=== PATIENT | female | born 1945 ===

== ENCOUNTER 2017-01-18 16:28 | Observation (INO) | payer MEDICARE, MEDICAID ==
[2017-01-18 16:59] LABS: BASO # 0.1 K/uL (0.0-0.2); BASO % 1.2 % (0.0-2.0); EOS # 0.1 K/uL (0.0-0.7); EOS % 2.8 % (0.0-4.0); LYMPH # 1.9 K/uL (1.0-4.3); LYMPH % 40.4 % (20.0-40.0); MEAN CELL VOLUME 91.2 fl (81.0-99.0); MEAN CORPUSCULAR HEMOGLOBIN 30.7 pg (27.0-31.0); MEAN CORPUSCULAR HGB CONC 33.7 g/dL (33.0-37.0); MEAN PLATELET VOLUME 9.2 fl (7.2-11.7); MONO # 0.5 K/uL (0.0-0.8); MONO % 10.2 % (0.0-10.0); NEUT # 2.1 K/uL (1.8-7.0); NEUT % 45.4 % (50.0-75.0); NRBC % 0.1 % (0.0-0.0); RED CELL DISTRIBUTION WIDTH 12.9 % (11.5-14.5); WHITE BLOOD COUNT 4.7 K/uL (4.8-10.8)
--- NOTE | 2017-01-18 17:01 | CT ---
PROCEDURE: CT HEAD WITHOUT CONTRAST. HISTORY: code stroke COMPARISON: None available. TECHNIQUE: Axial computed tomography images were obtained through the head/brain without intravenous contrast. Radiation dose: Total exam DLP = 868.70 mGy-cm. This CT exam was performed using one or more of the following dose reduction techniques: Automated exposure control, adjustment of the mA and/or kV according to patient size, and/or use of iterative reconstruction technique. FINDINGS: HEMORRHAGE: No intracranial hemorrhage. BRAIN: No mass effect or edema. No atrophy or chronic microvascular ischemic changes. VENTRICLES: Unremarkable. No hydrocephalus. CALVARIUM: Unremarkable. PARANASAL SINUSES: Unremarkable as visualized. No significant inflammatory changes. MASTOID AIR CELLS: Unremarkable as visualized. No inflammatory changes. OTHER FINDINGS: None. IMPRESSION: Normal CT of the Head. No evidence of acute infarct. No intracranial mass or hemorrhage. Findings in this examination were discussed by telephone with Dr. mcgregor at 4:57 p.m. on 01/18/2017
[2017-01-18 17:08] LABS: ALB/GLOB RATIO 1.2 (1.0-2.1); ALKALINE PHOSPHATASE 184 U/L (38-126); ALT/SGPT 49 U/L (9-52); AST/SGOT 30 U/L (14-36); BILIRUBIN,TOTAL 0.5 mg/dl (0.2-1.3); BLOOD UREA NITROGEN 17 mg/dl (7-17); CALCIUM 9.6 mg/dL (8.4-10.2); CARBON DIOXIDE 28 mmol/L (22-30); CHLORIDE 104 mmol/L (98-107); CHOLESTEROL 152 mg/dL (0-199); GFR AFRICAN-AMERICAN > 60; GLUCOSE,RANDOM 106 mg/dL (65-105); SODIUM 141 mmol/l (132-148); TOTAL PROTEIN 7.5 G/DL (6.3-8.2)
--- NOTE | 2017-01-18 17:14 | ED PDOC ---
HPI: General Adult Time Seen by Provider: 01/18/17 16:43 Chief Complaint (Nursing): Weakness/Neurological Deficit Past Medical History Vital Signs: Last Vital Signs Temp 98.0 F 01/18/17 16:35 Pulse 60 01/18/17 16:35 Resp 20 01/18/17 16:35 BP 135/65 01/18/17 16:35 Pulse Ox 99 01/18/17 16:35 - Medical History PMH: HTN - Surgical History Surgical History: Appendectomy, Cholecystectomy - Home Medications Home Medications: Ambulatory Orders Medication Instructions Recorded Carvedilol [Coreg] 25 mg PO BID 01/18/17 Diclofenac Sodium [Voltaren] 100 gm TP QID PRN 01/18/17 Olopatadine HCl [Pazeo] 1 drop BOTHEYES DAILY 01/18/17 Oxybutynin [Oxybutynin Chloride] 5 mg PO DAILY 01/18/17 SITagliptin [Januvia] 100 mg PO DAILY 01/18/17 - Allergies Allergies/Adverse Reactions: Allergies Allergy/AdvReac Type Severity Reaction Status Date / Time No Known Allergies Allergy Verified 01/18/17 16:35 - Laboratory Results Result Diagrams: 01/18/17 16:54 - ECG O2 Sat by Pulse Oximetry: 99 Medical Decision Making Medical Decision Making: Time: 16:[address] (Code Stroke): FINDINGS: HEMORRHAGE: No intracranial hemorrhage. BRAIN: No mass effect or edema. No atrophy or chronic microvascular ischemic changes. VENTRICLES: Unremarkable. No hydrocephalus. CALVARIUM: Unremarkable. PARANASAL SINUSES: Unremarkable as visualized. No significant inflammatory changes. MASTOID AIR CELLS: Unremarkable as visualized. No inflammatory changes. OTHER FINDINGS: None. IMPRESSION: Normal CT of the Head. No evidence of acute infarct. No intracranial mass or hemorrhage. Findings in this examination were discussed by telephone with Dr. mcgregor at 4: 57 p.m. on 01/18/2017. Scribe Attestation: Documented by Sydney Banks, acting as a scribe for Dylon Mas MD Provider Scribe Attestation: All medical record entries made by the Scribe were at my direction and personally dictated by me. I have reviewed the chart and agree that the record accurately reflects my personal performance of the history, physical exam, medical decision making, and the department course for this patient. I have also personally directed, reviewed, and agree with the discharge instructions and disposition. Disposition - Disposition Forms: We[facility] (Tajik)
[2017-01-18 17:24] LABS: POTASSIUM 4.5 MMOL/L (3.6-5.0)
--- NOTE | 2017-01-18 17:34 | RAD ---
HISTORY: stroke COMPARISON: 08/11/2010 FINDINGS: LUNGS: No active pulmonary disease. PLEURA: No significant pleural effusion identified, no pneumothorax apparent. CARDIOVASCULAR: Normal. OSSEOUS STRUCTURES: No significant abnormalities. VISUALIZED UPPER ABDOMEN: Normal. OTHER FINDINGS: None. IMPRESSION: No active disease.
--- NOTE | 2017-01-18 17:36 | ED PDOC ---
HPI:STROKE - Time Time: 16:30 - Historian Historian: Patient - Chief Complaint Chief Complaint: Numbness (right-sided) - Onset Time: 15:00 Onset: Hours (2 hours prior to arrival) - Timing Timing: Currently Symptomatic - TPA Positive for Contraindication: Yes Reason tPA is not being Administered: no deficits and NIH SS is 0 - Notes: Notes:: Christie Ellison is a 71 y/o female with a past medical history of hypertension and stroke, who presents to the ED complaining of right-sided lower facial numbness , right arm and leg numbness, onset 2 hours prior to arrival. Also complains of left eye redness. Patient is on Plavix s/p stroke 5 years ago. Denies having any other medical complaints. No slurred speech, difficulty walking, blurred vision, weakness, or chest pain. PMD: Ania Lombardo NIHSS Stroke Scale - Date/Time Evaluation Performed Date Performed: 01/18/17 Time Performed: 16:45 When Was NIHSS Performed: Baseline - How Severe is the Stroke Level of Consciousness: 0=Alert LOC to Questions: 0=Both comments correct LOC to commands: 0=Obeys both correctly Best Gaze: 0=Normal Visual: 0=No visual loss Facial: 0=Normal Motor Arm - Left: 0=No drift Motor Arm - Right: 0=No drift Motor Leg - Left: 0=No drift Motor Leg - Right: 0=No drift Limb Ataxia: 0=Absent Sensory: 0=Normal Best Language: 0=No aphasia Dysarthia: 0=Normal articulation Extinction & Inattention (Neglect): 0=Normal, no object Score: 0 rTPA Inclusion/Exclusion - Refusal of Treatment Patient Refused Treatment: No - Inclusion Criteria for Altepase Patient is 18 years or Older: Yes The Clinical Diagnosis of Ischemic Stroke That is Causing a Potentially Disabling Neurological Deficit: No Time of Onset is Well Established to be Less Than 270 Minute Before Treatment Would Begin: Yes Risk/Benefit Discussed With Patient/Family Member Present: No Past Medical History Reviewed: Historical Data, Nursing Documentation, Vital Signs Vital Signs: Last Vital Signs Temp 98.0 F 01/18/17 16:35 Pulse 60 01/18/17 16:35 Resp 20 01/18/17 16:35 BP 135/65 01/18/17 16:35 Pulse Ox 99 01/18/17 16:35 - Medical History PMH: CVA, Diabetes, HTN, Hypercholesterolemia - Surgical History Surgical History: Appendectomy, Cholecystectomy - Family History Family History: States: Unknown Family Hx - Social History Current smoker - smoking cessation education provided: No Alcohol: None Drugs: Denies - Home Medications Home Medications: Ambulatory Orders Medication Instructions Recorded Carvedilol [Coreg] 25 mg PO BID 01/18/17 Clopidogrel [Plavix] 75 mg PO DAILY 01/18/17 Diclofenac Sodium [Voltaren] 100 gm TP QID PRN 01/18/17 Memantine HCl/Donepezil HCl 1 each PO DAILY 01/18/17 [Namzaric 28 mg-10 mg Capsule] Olopatadine HCl [Pazeo] 1 drop BOTHEYES DAILY 01/18/17 Oxybutynin [Ditropan Tab] 5 mg PO DAILY 01/18/17 Rosuvastatin Calcium [Crestor] 5 mg PO DAILY 01/18/17 SITagliptin [Januvia] 100 mg PO DAILY 01/18/17 Aspirin [Aspirin Chewable] 81 mg PO DAILY 01/19/17 - Allergies Allergies/Adverse Reactions: Allergies Allergy/AdvReac Type Severity Reaction Status Date / Time No Known Allergies Allergy Verified 01/18/17 16:35 Review of Systems ROS Statement: Except As Marked, All Systems Reviewed And Found Negative Eyes: Positive for: Redness (Left eye). Negative for: Vision Change Cardiovascular: Negative for: Chest Pain Neurological: Positive for: Numbness (of right arm and leg, right lower facial area). Negative for: Weakness, Other (slurred speech, difficulty walking) Physical Exam - Reviewed Nursing Documentation Reviewed: Yes Vital Signs Reviewed: Yes - Physical Exam Appears: Positive for: Non-toxic, No Acute Distress Head Exam: Positive for: ATRAUMATIC, NORMAL INSPECTION, NORMOCEPHALIC Skin: Positive for: Normal Color, Warm, Dry Eye Exam: Positive for: EOMI, PERRL, Other (Subconjunctival hemorrhage to left eye) ENT: Positive for: Normal ENT Inspection Neck: Positive for: Normal, Painless ROM, Supple Cardiovascular/Chest: Positive for: Regular Rate, Rhythm. Negative for: Murmur Respiratory: Positive for: Normal Breath Sounds. Negative for: Accessory Muscle Use, Respiratory Distress Gastrointestinal/Abdominal: Positive for: Normal Exam, Soft. Negative for: Tenderness Back: Positive for: Normal Inspection. Negative for: Vertebral Tenderness Extremity: Positive for: Normal ROM. Negative for: Pedal Edema, Deformity Neurologic/Psych: Positive for: Alert, Oriented, Gait (normal), Other (Speech is normal). Negative for: Motor/Sensory Deficits - Laboratory Results Result Diagrams: 01/19/17 06:10 01/19/17 06:10 - ECG ECG: Positive for: Interpreted By Me, Viewed By Me ECG Rhythm: Positive for: Normal QRS, Sinus Bradycardia. Negative for: ST/T Changes Rate: 51 O2 Sat by Pulse Oximetry: 99 Pulse Ox Interpretation: Normal - Other Rad Chest X-Ray X-Ray: Read By Radiologist (at 17:32) X-Ray Interpretation: IMPRESSION: No active disease. - Core Measure Core Measure Indicators: Code Stroke - Critical Care Total Time (In Min): 45 Medical Decision Making Medical Decision Making: Time: 16:44 Initial Impression: TIA vs. Stroke Initial Plan: --Code stroke was called --Labs --EKG --CXR --Pending CT Head (Code Stroke) Time: 16:[address] (Code Stroke): FINDINGS: HEMORRHAGE: No intracranial hemorrhage. BRAIN: No mass effect or edema. No atrophy or chronic microvascular ischemic changes. VENTRICLES: Unremarkable. No hydrocephalus. CALVARIUM: Unremarkable. PARANASAL SINUSES: Unremarkable as visualized. No significant inflammatory changes. MASTOID AIR CELLS: Unremarkable as visualized. No inflammatory changes. OTHER FINDINGS: None. IMPRESSION: Normal CT of the Head. No evidence of acute infarct. No intracranial mass or hemorrhage. Findings in this examination were discussed by telephone with Dr. mcgregor at 4: 57 p.m. on 01/18/2017. Time: 17:03 --Spoke to Dr. Mccartney, director of instructional technology Neurologist for Dr. Cherry, and discussed case --He advised patient is not candidate for tPA --Agreed on plan to admit patient for stroke work-up and give Aspirin Time: 17:15 --Ordered Aspirin 325 mg PO --Pending MRI: MRA Neck without contrast, Brain without contrast, MRA Head without contrast --Patient admitted Clinical Impression: TIA, Stroke Scribe Attestation: Documented by Sydney Banks, acting as a scribe for Dylon Mas MD Provider Scribe Attestation: All medical record entries made by the Scribe were at my direction and personally dictated by me. I have reviewed the chart and agree that the record accurately reflects my personal performance of the history, physical exam, medical decision making, and the department course for this patient. I have also personally directed, reviewed, and agree with the discharge instructions and disposition. Disposition - Clinical Impression Clinical Impression: Numbness on right side - Patient ED Disposition Is Patient to be Admitted: Yes Discussed With : Dillon Guerrero Doctor Will See Patient In The: Hospital Counseled Patient/Family Regarding: Studies Performed, Diagnosis - Disposition Disposition Time: 17:00 Condition: FAIR - Pt Status Changed To: Hospital Disposition Of: Observation - POA Present On Arrival: None Core Measure Indicators: Code Stroke
[2017-01-18] MEDS ORDERED: DICLOFENAC SODIUM 100 GM TP PRN (20:30)
--- NOTE | 2017-01-18 23:03 | US ---
EXAM: US Duplex Bilateral Extracranial Arteries CLINICAL HISTORY: 71 years old, female; Signs and symptoms; Other: Stroke TECHNIQUE: Real-time ultrasound scan of the bilateral carotid and vertebral arteries, 2-D zhao scale, with color Doppler flow and spectral waveform analysis. COMPARISON: CT - HEAD W/O (CODE STROKE) 01/18/2017 4:41:11 PM FINDINGS: Right common carotid artery: No occlusion or significant stenosis. Right internal carotid artery: No occlusion or significant stenosis. Right external carotid artery: No occlusion or significant stenosis. Right vertebral artery: Antegrade flow. Right ICA/CCA ratio: Measures 1.5 Intimal thickening is detected bilaterally. Calcified plaque is detected bilaterally, right greater than left. Left common carotid artery: No occlusion or significant stenosis. Left internal carotid artery: No occlusion or significant stenosis. Left external carotid artery: No occlusion or significant stenosis. Left vertebral artery: Antegrade flow. Left ICA/CCA ratio: Measures 2.2 Lymph nodes: Unremarkable. No lymphadenopathy. CAROTID STENOSIS REFERENCE USING SRU CRITERIA: Mild - <50% stenosis. ICA PSV is less than 125 cm/second and plaque or intimal thickening is visible. Moderate - 50-69% stenosis. ICA PSV is 125 to 230 cm/second and plaque is visible. Severe - 70-94% stenosis. ICA PSV is more than 230 cm/second and visible plaque with lumen narrowing is seen. Near occlusion - 95-99% stenosis. ICA PSV is variable and significant plaque with luminal narrowing is seen. Occluded - 100% stenosis. No flow identified. IMPRESSION: 50-69% stenosis within the left internal carotid artery, based on ICA/CCA ratios, as detailed above. Less than a 50% stenosis within the right internal carotid artery.
[2017-01-19 06:48] LABS: HEMATOCRIT 41.4 % (34.0-47.0); MEAN CELL VOLUME 91.6 fl (81.0-99.0); MEAN CORPUSCULAR HEMOGLOBIN 30.9 pg (27.0-31.0); MEAN CORPUSCULAR HGB CONC 33.7 g/dL (33.0-37.0); WHITE BLOOD COUNT 4.1 K/uL (4.8-10.8)
[2017-01-19 07:00] LABS: ALB/GLOB RATIO 1.2 (1.0-2.1); ALKALINE PHOSPHATASE 137 U/L (38-126); ALT/SGPT 44 U/L (9-52); AST/SGOT 25 U/L (14-36); BILIRUBIN,TOTAL 0.4 mg/dl (0.2-1.3); BLOOD UREA NITROGEN 15 mg/dl (7-17); CARBON DIOXIDE 29 mmol/L (22-30); CHLORIDE 102 mmol/L (98-107); GFR AFRICAN-AMERICAN > 60; GLUCOSE,RANDOM 115 mg/dL (65-105); POTASSIUM 3.6 MMOL/L (3.6-5.0); SODIUM 141 mmol/l (132-148); TOTAL PROTEIN 6.7 G/DL (6.3-8.2)
[2017-01-19 07:11] LABS: T4 9.74 ug/dl (5.5-11.0)
[2017-01-19 08:25] VITALS: TEMP 98.3
--- NOTE | 2017-01-19 08:38 | CP.PCM.HP ---
<Deborah Francis - Last Filed: 01/19/17 11:39> History of Present Illness - History of Present Illness History of Present Illness: 71 y/o female with a past medical history of hypertension and stroke ( 5 years ago), who presented yesterday to the ED complaining of right-sided lower facial numbness, right arm and leg numbness, onset 2 hours prior to arrival. Also patient was complaining of left eye redness at the time of ED presentation. Patient is on Plavix s/p stroke 5 years ago. Patient states that she has intermittent episodes of numbness in her right body that started after her stroke 5 years ago, but yesterday she came in to ED because a worse episode associated to headaches, and mild dizziness. Patient seen and examined with attending this morning. Patient denies Cp,palpitation, SOB, N/V, difficulty walking, blurred vision, weakness Afebrile, and had an uneventful night Present on Admission - Present on Admission Any Indicators Present on Admission: No History of DVT/PE: No History of Uncontrolled Diabetes: No Urinary Catheter: No Decubitus Ulcer Present: No Review of Systems - Review of Systems All systems: reviewed and no additional remarkable complaints except (as per HPI ) Past Patient History - Past Medical History & Family History Past Medical History?: Yes - Past Social History Smoking Status: Never Smoked - CARDIAC Hx Cardiac Disorders: Yes Hx Hypercholesterolemia: Yes Hx Hypertension: Yes - PULMONARY Hx Respiratory Disorders: No - NEUROLOGICAL Hx Neurological Disorder: Yes HX Cerebrovascular Accident: Yes Hx Transient Ischemic Attacks (TIA): Yes - HEENT Hx HEENT Problems: No - RENAL Hx Chronic Kidney Disease: No - ENDOCRINE/METABOLIC Hx Endocrine Disorders: Yes Hx Diabetes Mellitus Type 2: Yes - HEMATOLOGICAL/ONCOLOGICAL Hx Blood Disorders: No - INTEGUMENTARY Hx Dermatological Problems: No - MUSCULOSKELETAL/RHEUMATOLOGICAL Hx Musculoskeletal Disorders: No Hx Falls: No - GASTROINTESTINAL Hx Gastrointestinal Disorders: No - GENITOURINARY/GYNECOLOGICAL Hx Genitourinary Disorders: No - PSYCHIATRIC Hx Psychophysiologic Disorder: No Hx Substance Use: No - SURGICAL HISTORY Hx Surgeries: Yes Hx Appendectomy: Yes Hx Cholecystectomy: Yes - ANESTHESIA Hx Anesthesia: Yes Hx Anesthesia Reactions: No Hx Malignant Hyperthermia: No Meds Allergies/Adverse Reactions: Allergies Allergy/AdvReac Type Severity Reaction Status Date / Time No Known Allergies Allergy Verified 01/18/17 16:35 Physical Exam - Constitutional Appears: No Acute Distress - ENT Exam ENT Exam: Mucous Membranes Moist - Respiratory Exam Respiratory Exam: Clear to Auscultation Bilateral, NORMAL BREATHING PATTERN - Cardiovascular Exam Cardiovascular Exam: REGULAR RHYTHM, +S1, +S2 - GI/Abdominal Exam GI & Abdominal Exam: Normal Bowel Sounds, Soft. absent: Distended, Firm, Guarding, Tenderness - Extremities Exam Extremities exam: Positive for: normal inspection. Negative for: calf tenderness, pedal edema - Neurological Exam Neurological exam: Alert, CN II-XII Intact, Oriented x3 Additional comments: preserved strength in upper/lower extremities - Skin Skin Exam: Dry, Intact, Normal Color Results - Vital Signs Recent Vital Signs: Last Vital Signs Temp 98.3 F 01/19/17 08:00 Pulse 62 01/19/17 08:00 Resp 20 01/19/17 08:00 BP 139/73 01/19/17 08:00 Pulse Ox 96 01/19/17 08:00 - Labs Result Diagrams: 01/19/17 06:10 01/19/17 06:10 Labs: Laboratory Results - last 24 hr 01/18/17 01/19/17 01/19/17 20:54 01:11 05:24 WBC RBC Hgb Hct MCV MCH MCHC RDW Plt Count Sodium Potassium Chloride Carbon Dioxide Anion Gap BUN Creatinine Est GFR ( Amer) Est GFR (Non-Af Amer) POC Glucose (mg/dL) 115 H 120 H Random Glucose Calcium Total Bilirubin AST ALT Alkaline Phosphatase Troponin I < 0.0120 Total Protein Albumin Globulin Albumin/Globulin Ratio Thyroxine (T4) 01/19/17 01/19/17 06:10 06:10 WBC 4.1 L RBC 4.52 Hgb 14.0 Hct 41.4 MCV 91.6 MCH 30.9 MCHC 33.7 RDW 13.0 Plt Count 173 Sodium 141 Potassium 3.6 Chloride 102 Carbon Dioxide 29 Anion Gap 14 BUN 15 Creatinine 0.7 Est GFR ( Amer) > 60 Est GFR (Non-Af Amer) > 60 POC Glucose (mg/dL) Random Glucose 115 H Calcium 9.0 Total Bilirubin 0.4 AST 25 ALT 44 Alkaline Phosphatase 137 H D Troponin I Total Protein 6.7 Albumin 3.6 Globulin 3.0 Albumin/Globulin Ratio 1.2 Thyroxine (T4) 9.74 Assessment & Plan - Assessment and Plan (Free Text) Plan: Transient Numbness could be 2/2 TIA asymptomatic now f/u Head/Neck MRA f/u Brain MRI f/u Vitamin B 12 start Aspirin 81 mg c/w plavix and statin Neurology on Board, Dr. Velasquez, f/u recommendations Head CT showed no evidence of acute infarct, intracraneal mass or hemorrhage Diabetes Mellitus type 2 f/u HgbA1C c/w Januvia 100 mg c/w accucheck HTN c/w home coreg f/u BP DVT prophylaxis lovenox 40 mg SC - Date & Time Date: 01/19/17 Time: 07:40 <Dillon Guerrero - Last Filed: 01/25/17 17:22> History of Present Illness - History of Present Illness History of Present Illness: Patient was personally seen and examined by me in rounds with residents. Available labs and diagnostic data reviewed. Case, Patient's condition and management plan Discussed with residents in rounds. Agree with resident's progress note. Plan: As ordered. Results - Vital Signs Recent Vital Signs: Last Vital Signs Temp 98.3 F 01/19/17 12:00 Pulse 51 L 01/20/17 10:35 Resp 18 01/19/17 12:00 BP 114/61 01/19/17 12:00 Pulse Ox 99 01/20/17 10:35 - Labs Result Diagrams: 01/19/17 06:10 01/19/17 06:10
[2017-01-19] MEDS ORDERED: DONEPEZIL HCL PO SCH ×2 (09:00)
[2017-01-19] MEDS ORDERED: Olopatadine 0.1% Opht SOLN OU SCH (09:00)
[2017-01-19] MEDS ORDERED: MEMANTINE HCL PO SCH ×2 (09:00)
[2017-01-19] MEDS ORDERED: Enoxaparin 40 mg Syringe SC SCH (09:00)
[2017-01-19 10:38] LABS: THYROID STIMULATING HORMONE 2.17 mIU/ML (0.46-4.68)
--- NOTE | 2017-01-19 10:41 | CARD ---
APPROVED REPORT EKG Measurement Heart [id number] <Conclusion> Sinus bradycardia Otherwise normal ECG
--- NOTE | 2017-01-19 11:57 | MRI ---
PROCEDURE: MRI BRAIN WITHOUT CONTRAST HISTORY: stroke COMPARISON: Comparison made with CT scan brain dated 01/18/2017. TECHNIQUE: Multiplanar, multisequence MR images of the brain were obtained without intravenous contrast enhancement. FINDINGS: HEMORRHAGE: No acute parenchymal, subarachnoid nor extra-axial hemorrhage. . No evidence hemosiderin deposition identified on gradient echo weighted sequence DWI: No evidence of an acute or early subacute infarction seen on diffusion imaging. . BRAIN PARENCHYMA: Minor chronic periventricular white matter ischemic changes with a tiny lacunar-type infarcts scattered about the deep and subcortical white matter both cerebral hemispheres. Mild central volume loss. VENTRICLES: No obstructive hydrocephalus CRANIUM: There are no acute calvarial fractures. ORBITS: Changes of bilateral cataract surgery. . PARANASAL SINUSES/MASTOIDS: Clear VASCULAR SYSTEM: Visualized major vascular flow voids at skull base are patent. OTHER FINDINGS: None. IMPRESSION: No acute intracranial hemorrhage. Minor chronic white matter ischemic changes. Mild is 11 central volume loss.
--- NOTE | 2017-01-19 12:02 | MRI ---
PROCEDURE: Magnetic Resonance Angiography Brain HISTORY: stroke COMPARISON: None available. TECHNIQUE: 3D time of flight MR angiography of the intracranial arteries was performed. Rotating maximum intensity projection images were generated. FINDINGS: INTERNAL CEREBRAL ARTERIES: Unremarkable. The skull base, petrous, cavernous and supraclinoid segments are bilaterally widely patient. ANTERIOR CEREBRAL ARTERIES: Unremarkable. A1 and A2 segments are widely patent. Smaller distal branches unremarkable, as visualized. MIDDLE CEREBRAL ARTERIES: Unremarkable. M1 and M2 segments are widely patent. Perisylvian branches grossly symmetric. POSTERIOR CIRCULATION: Basilar Artery: Unremarkable. Distal Vertebral Arteries: Patent however there is asymmetry of the distal vertebral arteries left-sided which is larger in caliber/ more dominant than the right ; an anatomic variant. The. Posterior Cerebral Arteries: Unremarkable. Posterior Inferior Cerebellar Arteries: Unremarkable. ANEURYSM/ VASCULAR MALFORMATIONS: None. OTHER FINDINGS: None. IMPRESSION: Unremarkable MR angiography of the brain.
[2017-01-19 12:19] VITALS: BP 114/61; RESP 18
--- NOTE | 2017-01-19 12:33 | MRI ---
PROCEDURE: MR Angiography of the neck without contrast HISTORY: stroke COMPARISON: None available. TECHNIQUE: 3D [id number] angiography of the neck was performed. Rotating maximum intensity projection images of the cervical carotid and vertebral arteries were generated. The origins of the common carotid arteries were not visualized, which is a limitation inherent to the non-contrast time of flight technique. FINDINGS: RIGHT CAROTID ARTERIES: Common Carotid Artery: No significant stenosis. approximately 35 percent diameter stenosis proximal left internal carotid artery at the bifurcation l. LEFT CAROTID ARTERIES: Common Carotid Artery: No significant stenosis. Carotid Bifurcation: Approximately 50 percent diameter stenosis proximal left internal carotid artery at the bifurcation VERTEBRAL ARTERIES: Right Vertebral Artery: Normal. Left Vertebral Artery: Normal. OTHER FINDINGS: None. IMPRESSION: Approximately 50 percent diameter narrowing proximal left internal carotid artery and approximately 35 percent diameter narrowing of proximal right internal carotid artery
[2017-01-19] MEDS ORDERED: Insulin Regular 100 units/ml SC SCH ×2 (13:30→16:30)
[2017-01-19] MEDS ORDERED: DICLOFENAC SODIUM 100 GM TP PRN (16:00)
--- NOTE | 2017-01-19 23:01 | CON ---
NEUROLOGY CONSULTATION REPORT DATE: 01/19/2017 REASON FOR CONSULTATION: Numbness on the right side of the face. HISTORY OF PRESENT ILLNESS: The patient is a 71-year-old female who came to the emergency room complaining of numbness and tingling on the right side of the face on the lower part. The patient was also experiencing the numbness on the right arm and right leg. It started about 2 hours prior to coming to the emergency room and then was almost resolved. Her NIH stroke scale in the emergency room was 0. The patient apparently had a stroke in the past and has been on Plavix. Denies any focal weakness in arms or legs. REVIEW OF SYSTEMS: Denies any headache, dizziness, chest pain, shortness of breath, abdominal pain, constipation, diarrhea, dysuria, pyuria, cough, sputum production, or loss of vision. She does have a history of memory loss. PAST MEDICAL HISTORY: Includes questionable stroke, memory loss, hypertension, hypercholesterolemia. MEDICATIONS AT HOME: Include Crestor, oxybutynin, Namzaric, Plavix, Coreg, Januvia, Pazeo, and Voltaren. ALLERGIES: NO KNOWN DRUG ALLERGIES. SOCIAL HISTORY: She denies smoking, use of alcohol, or illicit drugs. FAMILY HISTORY: Reviewed and noncontributory to the case. PHYSICAL EXAMINATION: GENERAL: The patient is an elderly pleasant female lying on the bed in no acute distress. VITAL SIGNS: Blood pressure is 139/73, heart rate is 62 per minute, breathing at a rate of 16 per minute, temperature is 98.3 degrees Fahrenheit. HEENT: Head is normocephalic and atraumatic. NECK: Supple. There are no carotid bruits. LUNGS: Clear. CARDIOVASCULAR: S1 and S2 audible. No murmurs. ABDOMEN: Soft and nontender with bowel sounds present. NEUROLOGIC: Mental status; she is awake, alert, and oriented to time, place, and person . Naming and repetition is normal. Cranial nerve examination; pupils are 4 mm bilaterally reactive to light. Visual morales are full. Extraocular movements are intact. There is no facial asymmetry. Palate is upgoing bilaterally . Motor examination; tone is normal. Power is 5/5 bilaterally in all extremities. Reflexes +1 and symmetrical. Plantars are downgoing bilaterally. Cerebellar examination; [id number] shows no dysmetria. LABORATORY DATA: Reviewed. CT scan of the head is normal. Her WBC is 4.1, hemoglobin 14.0, hematocrit 41.4, and platelets 173. INR is 1.2. Sodium 141, potassium 3.6, chloride 102, carbon dioxide 29, BUN of 15, creatinine 0.7, and glucose 115. Vitamin B12 is 622. Her T4 and TSH are within normal limits. She had MRI of the brain done, the report is awaited; however, I have reviewed it by myself and I have not seen any acute infarct, please follow up the official report. IMPRESSION: Status post numbness on the right face, right arm, and right leg possibly secondary to transient ischemic attack. RECOMMENDATIONS: 1. The patient had a carotid Doppler study done, which shows right internal carotid artery less than 50% stenosis and left internal carotid artery 50% to 69% stenosis. 2. The patient complains that she had on and off hemorrhage in the eye as well as sometimes rectal bleed. I have considered keeping the patient on one antiplatelet agent. I also considered GI evaluation, which may be done as outpatient. The patient's hemoglobin and hematocrit is stable. 3. Please follow up the official results of the MRI of the brain without contrast. 4. The patient has no focal neurologic deficit at present. 5. The patient to be continued on Namzaric for her underlying memory loss. 6. If the patient remains stable, then she may be discharged with outpatient followup. Thank you for the opportunity to participate in the care of this patient. Miladys Velasquez MD
[2017-01-20 10:35] VITALS: PULSE 51; O2SAT 99
== END 2017-01-19 14:15 | disposition home or self-care (01) ==
LOC: H.ER 16:28 → H.ERHOLD 17:29 → H.TEL 20:06 → UNDODISOB 01-19 02:15
PROVIDERS: ADMIT Internal Medicine; ATTEND Internal Medicine
DX: G45.9 Transient cerebral ischemic attack, unspecified (principal); E11.9 Type 2 diabetes mellitus without complications; E78.00 Pure hypercholesterolemia, unspecified; I10 Essential (primary) hypertension; Z79.02 Long term (current) use of antithrombotics/antiplatelets; Z86.73 Personal history of transient ischemic attack (TIA), and cerebral infarction without residual deficits; Z90.49 Acquired absence of other specified parts of digestive tract; Z79.84 Long term (current) use of oral hypoglycemic drugs; H57.8 Other specified disorders of eye and adnexa
CPT/HCPCS: 36415; 70450; 70544; 70547; 70551; 71010; 80053; 80061; 82607; 82948; 83036; 84436; 84443; 84484; 85025; 85027; 85610; 85730; 93005; 93880; 97161; 99285; G0378; G8978; G8979; J1650